=== PATIENT | female | born 1970 | race Caucasian/White ===

== ENCOUNTER 2017-06-16 08:28 | Day surgery (SDC) | payer OTHER ==
[~2017-06-16] VITALS: Ht 160 cm; Wt 117.2 kg
[~2017-06-16 08:28] MED LIST: ACET325 PO; Antivert25 MG PO; B COMPLEX FOLIC ACID PO; B Complex #11 EACH PO; Bactrim 400-801 EACH PO; CALCAVITDA PO; CALCIUM PO; CHOL10002 PO; CIPR500 PO; DOCU100 PO; ESTR.1TPW TOP; FERR325 PO; GLIPIZIDE PO; Hair, Skin & N1 EACH PO; IBUP800 PO; IRON PO; LISI5 PO; LOVASTATIN PO; Lovastatin20 MG PO; MECL25 PO; METF500 PO; MULVITMIND PO; Metformin HCl1000 MG PO; OXYACE5T PO; Prinivil10 MG PO; Sudogest120 MG PO; Super B With V1 EACH PO; ZINC15 PO
== END 2017-06-16 10:57 | disposition home or self-care (01) ==
LOC: ORSCSDS 08:28
PROVIDERS: Internal Medicine Gastroenterology
PROC: 0D5K8ZZ Destruction of Ascending Colon, Via Natural or Artificial Opening Endoscopic (ICD-10-PCS; principal; 2017-06-16 10:00)
DX: K92.1 Melena (principal); K55.20 Angiodysplasia of colon without hemorrhage; K64.8 Other hemorrhoids; K57.30 Diverticulosis of large intestine without perforation or abscess without bleeding; Z87.891 Personal history of nicotine dependence; R16.2 Hepatomegaly with splenomegaly, not elsewhere classified; E11.9 Type 2 diabetes mellitus without complications; I10 Essential (primary) hypertension; D64.9 Anemia, unspecified
CPT/HCPCS: 36415; 82105; 82947; J7120

== ENCOUNTER → 2017-08-23 | Outpatient (CLI) | payer OTHER | LOC: LAB SHORT 17:10 → LAB 17:10 | DX: N39.0 Urinary tract infection, site not specified (principal) | CPT/HCPCS: 87086 ==